=== PATIENT | female | born 1955 | race Caucasian/White ===

== ENCOUNTER → 2016-09-09 | Outpatient (CLI) | payer BC ==
[~2016-09-09] MED LIST: ADVIL200 MG PO; ALEVE220 MG PO; ASPIRIN EC325 MG PO; BRILINTA90 MG PO; CALCIUM 500 +1 EAC4 PO; CLARITIN10 MG PO; FOSAMAX70 MG PO; GLUCOPHAGE500 MG PO; GLUCOSAMINE &1 EAC1 PO; GLUCOSAMINE/CHO1 CAP PO; IPRAT-ALBUT 0.5-3 ML INH; LIPITOR40 MG PO; LOPRESSOR25 MG PO; MULTI VITAMIN1 EACH PO; NITROSTAT0.4 MG SL; PLAVIX75 MG PO; TYLENOL EXTRA500 MG PO; VASOTEC2.5 MG PO; VITAMIN C1000 MG PO
--- NOTE | 2016-09-09 10:45 | NUR ---
Met with patient prior to breast biopsy. Introduced self and role of nurse navigator. Will call patient on Monday to see how she is doing.
--- NOTE | 2016-09-12 13:41 | NUR ---
Called patient post breast biopsy. Biopsy site is fine. No pain or redness. Patient states biopsy procedure went well.
== END | disposition disaster alternative care site (69) ==
LOC: GPOC 09-06 10:00 → GBCOE 09:37 → GPOC 10:00 → GBCOE 10:00
PROC: 0H9T3ZX Drainage of Right Breast, Percutaneous Approach, Diagnostic (ICD-10-PCS; principal; 2016-09-09)
DX: D24.1 Benign neoplasm of right breast (principal); N63 Unspecified lump in breast; Z85.3 Personal history of malignant neoplasm of breast
CPT/HCPCS: J7050

== ENCOUNTER 2016-09-26 19:15 | Inpatient (IN) | payer BC ==
[~2016-09-26] VITALS: Ht 157.5 cm; Wt 74.9 kg
--- NOTE | ~2016-09-26 | ECHO ---
Transthoracic Echocardiography Report (TTE) Demographics Patient Name PEYTON ALARCON Date of Study 09/27/2016 Patient Number [id number] Visit Number [id number] Date of 1955 Room Number G6335 Gender Female Number Age 61 year(s) Referring Lorri Martin MD Disaster Recovery Specialist José Manuel Medellin RVT Physician Kasey West MD Physician Interpreting Maria Luz Huerta Veneer Taper Physician Shamar WARNER Supervising Ordering Olga West MD, MD/MLP Physician Nurse Stress Warehouse Hand Conclusions Contractility Score Summary Global Left Ventricular Hypokinesis was noted. Summary The estimated left ventricular ejection fraction is 30 %. The left ventricle is mildly dilated . Mild concentric left ventricular hypertrophy. Diastolic function probably restrictive Mildly reduced right ventricular function. Mild calcification of the mitral valve. Mild-moderate mitral regurgitation by color Doppler. Mild tricuspid regurgitation by color Doppler. Procedure Type of Study TTE procedure:2D Echocardiogram. Procedure Date Date: 09/27/2016 Start: 08:28 AM Study Location: Inpatient Portable Technical Quality: Adequate visualization Indications:Atrial flutter. Appropriate Use Criteria: 9 Patient Status: Routine HR: 74 bpm BP: 128/74 mmHg M-Mode/2D Measurements LV Diastolic Dimension: 5.48 cm LV Systolic Dimension: 4.58 cm LV Septum Diastolic: 1.16 cm LV PW Diastolic: 1.12 cm AO Root Dimension: 2.6 cm Cardiac Output: 2.64 l/min AV Cusp Separation: 1.7 cm RV Diastolic Dimension: 2.88 cm LA volume: 58 ml LVOT: 1.9 cm RV Base: 2.77 cm LVOT VTI: 12.6 cm RV Mid: 2.51 cm LV Stroke volume: 35.71 ml TAPSE: 0.82 cm TDI-S': 13 cm/s Doppler Measurements AV Peak Velocity: 1.1 m/s MV Peak E-Wave: 1.2 m/s AV Peak Gradient: 4.84 mmHg AV Mean Gradient: 3 mmHg MV P1/2t: 39 msec LVOT Peak Velocity: 0.68 m/s TR Velocity:2.14 m/s PV Peak Velocity: 0.88 m/s TR Gradient:18.32 mmHg PV Peak Gradient: 3.08 mmHg Estimated RAP:10 mmHg Estimated PASP: 28.32 mmHg Estimated RVSP: 28 mmHg A' Septal Velocity: 0.02 m/s E' Septal Velocity: 0.06 m/s A' Lateral Velocity: 0.1 m/s E' Lateral Velocity: 0.14 m/s Findings Left Ventricle The left ventricle is mildly dilated . Mild concentric left ventricular hypertrophy. Diastolic function probably restrictive Right Ventricle Mildly reduced right ventricular function. Left Atrium The left atrium is mildly dilated by LA volume index measurement. Right Atrium The right atrium is mildly to moderately dilated. IVC measures 1.48 cm with inspiratory collapse. Mitral Valve Mild calcification of the mitral valve. Mild-moderate mitral regurgitation by color Doppler. Aortic Valve Possibly bicuspid aortic valve. No significant aortic stenosis or insufficiency. Tricuspid Valve Mild tricuspid regurgitation by color Doppler. Pulmonic Valve Normal pulmonic valve structure and function. Pericardial Effusion No evidence of pericardial effusion. Miscellaneous Visualized portions of the aortic root and ascending aorta appear normal in size. Pleural Effusion No evidence of pleural effusion. Contractility Score LV regional wall motion:(0-Non visualized 1-Normal 2-Hypokinesis 3-Akinesis 4-Dyskinesis 5-Aneurysm) Signature dtt: Art Braga dtd: 09/27/16 0828 Physician Self Edit
--- NOTE | ~2016-09-26 | HP ---
PATIENT'S NAME: PEYTON ALARCON [facility] AGE: 61 Y [address] ROOM: G6335 [place], [place] [address] [facility] ADMIT DATE: 09/26/2016 History & Physical DISCHARGE DATE: FAMILY PHYSICIAN: Kamilla Blackmon MD ATTENDING PHYSICIAN: CAROLYNN AMADOR DATE OF SERVICE: CHIEF COMPLAINT: Exertional dyspnea and bilateral leg weakness. HISTORY OF PRESENT ILLNESS: This is a 61-year-old female who says that for the last 2 weeks she has been experiencing generalized weakness, more in bilateral lower extremities, especially on exertion, but she denies any fall. Due to the generalized weakness, she also complains of exertional dyspnea and tachypnea for the last 2 weeks. She described the leg weakness and exertional dyspnea and tachypnea as on and off; initially, it went away the last few days, but then it came back again yesterday and today. She also complained of some left- sided chest discomfort, but she says that she has been having this for a long time on and off. It feels like as she pulled the muscle. She also complained of some posterior left upper back pain; it is also for long time on and off, and also came back last night and today for a very brief duration. She states that the pain in the left anterior and left posterior chest is about 3/10 in intensity, only lasts a few seconds and only radiates from the left anterior chest to left posterior upper chest, and it feels like she pulled a muscle type of pain. This happened at rest and not on exertion. She does not have any known cardiac history; however, one of her sisters had open heart surgery, bypass, CABG in her 50s. Because of the generalized weakness associated with exertional dyspnea and tachypnea, the patient went to [facility] for evaluation. Over there at [facility], EKG was performed and showed atrial flutter, heart rate in the 140, and blood work over there including troponin, CPK, CK-MB, and chest x-ray were unremarkable. The patient was sent over here for evaluation. Before the patient got transferred here, the patient got 1 L of normal saline and other than that no other medications were given. Currently, the patient does not complain of any chest pain. REVIEW OF SYSTEMS: As mentioned in the history of present illness. All other system review negative except those mentioned in the history of present illness. PAST MEDICAL HISTORY: According to the patient: PATIENT'S NAME: PEYTON ALARCON [facility] AGE: 61 Y [address] ROOM: G6[address] [place], [place] [address] [facility] ADMIT DATE: 09/26/2016 History & Physical DISCHARGE DATE: FAMILY PHYSICIAN: Kamilla Blackmon MD ATTENDING PHYSICIAN: CAROLYNN AMADOR 1. History of left breast cancer in 2000, followed by oncologist, Dr. Álvarez, underwent radiation and finished chemotherapy many years ago. She is already cured without any evidence of metastasis. She denies any other past medical history. ALLERGIES: NO KNOWN DRUG ALLERGIES ACCORDING TO THE PATIENT. HOME MEDICATIONS: Currently is being reconciled. I quickly reviewed the medication list, she is not on any cardiac medication. SOCIAL HISTORY: The patient denies any alcohol or illegal drugs or cigarette use. FAMILY HISTORY: Father has diabetes type 2. Mother from some kind of a kidney problem which would require peritoneal dialysis. She has 2 brothers who are healthy. She has 2 sisters; 1 had an open heart surgery, bypass, CABG in her 50s. She denies any cardiac problems in her parents. PHYSICAL EXAMINATION: VITAL SIGNS: At the time of my dictation, temperature 98, blood pressure 150/85, heart rate 145, respiration 16, and saturation 97% on room air. Pain 0/10. GENERAL APPEARANCE: Alert and oriented x3. In no acute distress. HEENT: Pupils equally round and reactive to light. Extraocular muscles intact. Anicteric sclerae. Nasal turbinates are normal bilaterally. Moist oral mucosa. No oral thrush. NECK: No JVD. CARDIOVASCULAR: Tachycardic. No murmur, no rubs, no gallops. Regular. RESPIRATORY: Clear to auscultation. No rhonchi, no rales, no wheezing, and no crackles. CHEST WALL: Nontender to palpation. ABDOMEN: Soft, nontender, nondistended, normal bowel sounds, no hepatosplenomegaly. Bowel sounds present. No palpable mass. EXTREMITIES: No edema in the upper or lower extremities. NEUROLOGIC: Grossly nonfocal. SKIN: No ulcer, no rash, no cyanosis. MUSCULOSKELETAL: No joint pain, no muscle pain. Range of motion intact. LABORATORY DATA: Troponin 0.112, proBNP 2539, CPK 80, CK-MB 2.9 the first set. White blood cells 5.9, hemoglobin 12.7, hematocrit 37.6, MCV 91, platelets 209. Glucose PATIENT'S NAME: PEYTON ALARCON [facility] AGE: 61 Y [address] ROOM: [place] [address] LOCATION: [facility] ADMIT DATE: 09/26/2016 History & Physical DISCHARGE DATE: FAMILY PHYSICIAN: Kamilla Blackmon MD ATTENDING PHYSICIAN: CAROLYNN AMADOR 110, BUN 15, creatinine 0.6, sodium 144, potassium 4.0, chloride 113, CO2 of 22, calcium 7.9, total protein 6.9, albumin 3.6, AST 64, ALT 155, alkaline phosphatase 76, total bilirubin 0.4, magnesium 2.0, GFR more than 60. Anion gap 13. Globulin 3.3. INR 1.0, PTT 26. Free T4 0.9, TSH 2.690. IMAGING STUDIES: Chest x-ray from the outside facility on September 26, 2016, based on my review, unremarkable. EKG from the outside facility from [facility] on September 26, 2016, before the transfer here shows what seems to be like an atrial flutter, heart rate 140, QRS 92 msec, QTc 485 msec. No acute ischemic changes. Repeat EKG here in our facility on September 26, 2016, at 9:00 p.m. shows heart rate of 144, seems more regular right now, likely in sinus tachycardia. No ST elevation. ASSESSMENT AND PLAN: 1. Regarding her atrial flutter: I have spoken and already formulated the plan of care with on-call patcher, Dr. Stacy, and will start the patient on Cardizem bolus, 0.25 mg/kg bolus, followed by drip starting at 5 mg/hour and titrate to keep the heart rate less than 100. Watch closely for the blood pressure. In the meantime, the patient will be n.p.o. after midnight, and get an echo in the morning, transthoracic, and repeat EKG in the morning, cycle cardiac enzymes every 6 hours. The patient is hemodynamically stable right now and asymptomatic; therefore, there is no urgency for any cardioversion. In the meantime, while n.p.o. and on Cardizem drip, the patient will be getting IV fluids; I will choose a D5 half normal saline and 20 mEq potassium chloride running at 75 mL/h to keep the potassium more than 4 and titrate once the IV fluids is finished after 1 L. Magnesium is already 2, therefore is good. The goal will be to keep the patient's potassium more than 4 and magnesium more than 2, both of which the patient is already at goal. Further plan depends on clinical course. 2. Regarding her troponin elevation: The patient denies any chest pain. EKG does not show any acute ischemia. This could be from demand ischemia given that the patient has been having heart rate in the 140-150 from atrial flutter for a long time, probably since her symptoms have been happening for 2 weeks. Therefore, this could be chronic. Therefore, I am going to start the patient on heparin drip for anticoagulation to prevent the risk of a stroke. Her [id number] score is 1, which is her sex which is a female which gets 1 point. Per guideline, the score of 1 can either go without or with anticoagulation given that the patient has been having this problem for roughly 2 weeks and maybe even longer; therefore, I will go ahead and start the patient on heparin drip for PATIENT'S NAME: PEYTON ALARCON [facility] AGE: 61 Y [address] ROOM: [place] [address] [facility] ADMIT DATE: 09/26/2016 History & Physical DISCHARGE DATE: FAMILY PHYSICIAN: Kamilla Blackmon MD ATTENDING PHYSICIAN: CAROLYNN AMADOR anticoagulation. Further evaluation per Cardiology in the morning in the consult. I also already went over the plan of care with the patient and the patient agreed to be put on a blood thinner. The patient does not have any history of gastrointestinal bleeding or any bleeding history. 3. Regarding her transaminitis: Trend another liver function tests in the morning. The patient denies any abdominal pain. 4. Regarding her deep vein thrombosis prophylaxis: She is already on heparin drip. 5. Code status: She is a full code. Time spent in care on the day of admission 45 minutes including chart review, interviewing the patient, examining the patient, addressing all the questions and concerns the patient had, and going over the plan of care with the patient. I addressed all the questions the patient had to her satisfaction. I also placed a phone call and I sent EKG to the on-call patcher, Dr. Stacy, and I discussed the plan of care with Dr. Stacy over the phone. The only thing I did not discuss at that time was heparin drip because the blood work at that time had not come back. Further plan of care depends on clinical course. I will also be checking a lipid panel and A1c as well in the morning. MD ZULY JARQUIN/melba /[id number] D: [id number] T: [id number] HISTORY & PHYSICAL
--- NOTE | ~2016-09-26 | DS ---
[facility] 61 [facility] [address] ROOM: [facility] [place] [address] LOCATION: [facility]U ADMIT DATE: 09/26/2016 Discharge Summary DISCHARGE DATE: 09/29/2016 FAMILY PHYSICIAN: Kamilla Blackmon MD ATTENDING PHYSICIAN: Sparkle Vargas ATTENDING PHYSICIAN: Jaziel Gutierrez MD CONSULTATION: Cardiology, Dr. Isael Stacy. FINAL DIAGNOSES: 1. Atrial flutter/supraventricular tachycardia, resolved. 2. Coronary artery disease, status post stent. 3. Ischemic cardiomyopathy versus tachycardia-induced cardiomyopathy. 4. History of breast cancer. 5. Transaminitis, unclear etiology. 6. Dyslipidemia. 7. Diabetes mellitus/prediabetes. 8. Right lung nodule, for surveillance. 9. Extrarenal pelvis, likely normal variant. 10. Aortic arch lymphadenopathy. PROCEDURES: Left heart catheterization with stent by Dr. Isael Stacy. REASON FOR ADMISSION: This is a 61-year-old female, who presented with progressively worsening shortness of breath with exertion, also bilateral leg weakness. The patient also had chest pain on her left side. She presented at an outlying hospital, was evaluated, and was found to have atrial flutter. She was then transferred to [facility] for higher level of care. DIAGNOSTIC STUDIES: A transthoracic echocardiogram was done and showed global left ventricular hypokinesis with ejection fraction of 30%, left ventricle mildly dilated with mild concentric left ventricular hypertrophy, diastolic function was probably restrictive with mildly reduced right ventricular function, mild tricuspid regurgitation was noted. Serial cardiac enzymes were done. CPK was normal. Troponin I 0.112 and was trending up and was 0.234 when it was last checked. ProBNP 2539 on admission, subsequently was 1679. Serial CBCs showed essentially normal white count, hemoglobin, hematocrit, and platelet levels. Serial CMPs were done. The patient had normal electrolytes and kidney function tests. Her liver function tests were slightly elevated. AST 64 on admission and 30 at the time of discharge. ALT 155 on admission and trending down and 102 at discharge. Alkaline phosphatase was normal. Total bilirubin level normal. Mag 2.3. Hemoglobin A1c 6.5. Lipid panel was done, showed a total cholesterol 200, PATIENT'S NAME: PEYTON ALARCON [facility] AGE: 61 Y [address] ROOM: [address] [place], [place] [address] LOCATION: [facility]PCU ADMIT DATE: 09/26/2016 Discharge Summary DISCHARGE DATE: 09/29/2016 FAMILY PHYSICIAN: Kamilla Blackmon MD ATTENDING PHYSICIAN: Sparkle Vargas triglycerides 99, HDL 61, LDL 120. The patient was placed on heparin drip, and that was monitored by PTT levels. PT, INR, PTT were normal on admission. TSH 2.[address] 0[address]. [address] chest, abdomen, and pelvis with contrast was done and showed no evidence of aortic aneurysm or dissection. A 7 mm noncalcified nodule at the left lung base was noted. Followup study in 6 month is recommended. Borderline enlarged lymph nodes adjacent to the aortic arch, measuring 9 to 11 mm were noted. Prominent left extrarenal pelvis was noted. HOSPITAL COURSE: This is a 61-year-old female, who had progressively worsening exertional dyspnea and also chest pain and bilateral lower extremity weakness. The patient was evaluated at an outlying facility and was found to have atrial flutter. She was then transferred to [facility]. Upon admission, Dr. Espinoza evaluated the patient. By the time Dr. Espinoza had evaluated the patient, the patient was already in regular rhythm but was tachycardic. She was placed on a Cardizem drip briefly. Her heart rates were then very well controlled. Cardiac enzymes were done and were elevated. There was concern for NSTEMI at that point of time. Cardiology was consulted. A transthoracic echocardiogram was done and showed depressed ejection fraction with hypokinesis. The patient was then scheduled for a left heart catheterization the next morning. It was thought that the patient had tachycardia-induced cardiomyopathy. The next morning, the patient underwent a left heart catheterization and had a stent as well. This was likely ischemic cardiomyopathy. From a tachycardia perspective, the patient's tachycardia had resolved. This was likely thought to be supraventricular tachycardia. Her chest pain had also resolved by the time of discharge. The patient will follow up with Cardiology. She was ambulating in the hallway and tolerating p.o. The patient has a history of breast cancer. She was found to have transaminitis. By the time of discharge, the patient's liver enzymes were trending down. Given her history and also the history of chest pain radiating to her back, there was concern for dissection. This was ruled out by CT chest with contrast. We also did a CT abdomen and pelvis with contrast at the same time to evaluate for liver abnormalities. The patient was found to have a right lung nodule and also aortic arch lymphadenopathy. The patient has a history of breast cancer in the past but had a normal mammogram with fibroadenoma noted on her recent mammogram done on September 05, 2016. A 6-month followup with a right diagnostic mammogram was then recommended. Given her history, a CT abdomen and pelvis with contrast was also done. It noted that the patient has a right lung nodule that is noncalcified and surveillance is recommended for that. The patient also has aortic arch lymphadenopathy. Dr. Ch recommended that we check prior CAT scans, but they were not available PATIENT'S NAME: PEYTON ALARCON [facility] AGE: 61 Y [address] ROOM: [place] [address] LOCATION: [facility]U ADMIT DATE: 09/26/2016 Discharge Summary DISCHARGE DATE: 09/29/2016 FAMILY PHYSICIAN: Kamilla Blackmon MD ATTENDING PHYSICIAN: Sparkle Vargas in the system for evaluation. The patient stated that she had breast cancer several years ago. In the absence of comparison images for aortic arch lymphadenopathy, it is recommended that the patient undergo a PET-CT scan in 1 week's time to further evaluate the lymphadenopathy. The patient will get this arranged outpatient with Dr. Blackmon. I updated Dr. Blackmon about the finding. The patient was also found to have extrarenal pelvis that was thought to be a normal variant on CT abdomen and pelvis. The patient also was found to have a hemoglobin A1c of 6.5. She was given diabetes education prior to discharge. She was recommended regular Accu-Cheks. This was thought to be prediabetes since the patient's stated that the patient recently had a workup for diabetes and did not have elevated blood sugar and was told that she did not have diabetes. I placed the patient on metformin currently. The patient will undergo evaluation with her primary care physician for further diabetes work. The patient initially had atrial flutter. There was consideration given to anticoagulation. She was initially placed on a heparin drip for NSTEMI and also atrial flutter. Her CHADS-Vasc score on admission was 1. However, the patient was found to have borderline diabetes during this admission. This puts her in the II category. She was found to have acute systolic heart failure. If the patient's CHADS-Vasc score is elevated or changes, the patient will need long-term anticoagulation with Coumadin. I discussed this with Dr. Kamilla Blackmon. Cardiology will follow up with the patient, and address if the patient needs long-term anticoagulation. Currently, she would be at high bleeding risk given dual-antiplatelet therapy with Brilinta and ASA for her stent. The patient verbalized understanding of the plan. The patient continued to do well. All questions were answered. She was tolerating p.o. and ambulating in the hallway without any problems. She continued to do well and was discharged and asked to follow up with her primary care physician. DISCHARGE INSTRUCTIONS: The patient discharged on a cardiac and 1800- kilocalorie ADA diet. Activities as tolerated. Follow up with Dr. Isael Stacy in [address] Stacy to address long-term anticoagulation needs if they arise in future. The patient is to follow up with Dr. Kamilla Blackmon in 3 to 4 days' time. PCP to check a CBC and a CMP. Regular BP check advised. Accu-Cheks a.c. and h.s. advised. The patient was given diabetes education prior to discharge. PCP to arrange for a PET scan in 1 week to look for lymphadenopathy. PCP to follow right lung nodule with repeat CT chest in 6 months' time. PCP also to arrange for Oncology follow up with Dr. Jewels Álvarez if the patient's PET scan is abnormal, or if there are any further concerns. PATIENT'S NAME: PEYTON ALARCON [facility] AGE: 61 Y [address] ROOM: [place] [address] LOCATION: [facility]PCU ADMIT DATE: 09/26/2016 Discharge Summary DISCHARGE DATE: 09/29/2016 FAMILY PHYSICIAN: Kamilla Blackmon MD ATTENDING PHYSICIAN: Sparkle Vargas DISCHARGE MEDICATIONS: 1. Aspirin 81 mg p.o. daily, new medication. 2. Calcium and vitamin D 500 mg p.o. daily. 3. Claritin 10 mg p.o. daily p.r.n. allergies. 4. Lipitor 80 mg p.o. q.h.s., new medication. 5. Vasotec 2.5 mg p.o. daily, new medication. 6. Lopressor 25 mg p.o. b.i.d., new medication. 7. Brilinta 90 mg p.o. b.i.d., new medication. 8. Tylenol 1000 mg p.o. q.6 hours p.r.n. pain. 9. Fosamax 70 mg p.o. every 7 days. 10. Multivitamin 1 tablet p.o. daily. 11. Vitamin C 1000 mg p.o. daily. 12. Glucosamine and chondroitin capsule one cap p.o. daily. 13. Ipratropium and albuterol inhalation 1 vial inhalation 4 times daily p.r.n. bronchitis. 14. Metformin 500 mg p.o. b.i.d., new medication. 15. Nitroglycerin 0.4 mg sublingual p.r.n. chest pain. Call MD if chest pain does not resolve. This patient was managed by hospitalist and Cardiology teams during this admission. JAZIEL GUTIERREZ MD MT/modl /[id number] CC: MD Isael Ang MD d: 09/30/16 0241 t: 10/02/16 1552, DISCHARGE SUMMARY
--- NOTE | ~2016-09-26 | CON ---
PATIENT'S NAME: PEYTON ALARCON [facility] AGE: 61 Y [address] ROOM: [address] [place], [place] [address] [facility] ADMIT DATE: 09/26/2016 Consultation DISCHARGE DATE: FAMILY PHYSICIAN: Kamilla Blackmon MD ATTENDING PHYSICIAN: CAROLYNN VARGAS REFERRING PHYSICIAN: Isael Licea MD REFERRING PHYSICIAN: Carolynn Vargas MD. REASON FOR CONSULT: Atrial flutter and shortness of breath. 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 She notices that she has "not been feeling quite right" for the past 2 weeks, but last week at work her legs became very weak and she was very short of breath. It did not last long and she thought maybe she had a virus. Monday, she was not at work and she had repeat episode and thought "well maybe something just does not quite right" and so she went to see her primary care physician on Monday. They did an EKG and she was found to be in atrial fibrillation/atrial flutter and so she was transferred to [facility] for further definitive care. She does not really notice any palpitation and she denies any chest pain, but states that she feels like she has a pulled muscle in her back and sometimes under her left breast. She has been more short of breath. She has been more fatigued and has found it difficult to lie down. She has also had some mild peripheral edema, but nothing really concerning. She also had cardiac enzymes that were done showing a troponin of 0.112 to 0.282, CK-MB was 2.9 with a normal creatinine of 0.6. PAST MEDICAL HISTORY: 1. Left breast cancer in 2000, followed by Dr. Álvarez. She has undergone radiation and chemotherapy. She has not had any further recurrence. 2. Hyperlipidemia. PAST SURGICAL HISTORY: 1. Right breast biopsy. 2. Left breast lumpectomy. 3. Tonsillectomy. FAMILY HISTORY: Father has diabetes mellitus type 2. Mother from kidney problems, which required peritoneal dialysis. She has 2 brothers who are healthy and 2 sisters, one sister had open-heart surgery in her 50s. REVIEW OF SYSTEMS: PATIENT'S NAME: PEYTON ALARCON [facility] AGE: 61 Y [address] ROOM: [id number] [place], [place] [address] LOCATION: [facility] ADMIT DATE: 09/26/2016 Consultation DISCHARGE DATE: FAMILY PHYSICIAN: Kamilla Blackmon MD ATTENDING PHYSICIAN: CAROLYNN VARGAS GENERAL: She has been more fatigued lately. HEAD: No history of headaches. EYES: No blurred vision or double vision. EARS: No problems with hearing. NOSE: No epistaxis or rhinorrhea. MOUTH: No gingival bleeding. THROAT: Denies sore throat, hoarseness, or difficulty swallowing. PULMONARY: Denies cough or hemoptysis, but she does complain of some orthopnea. GI: She has had a decreased appetite. : Negative for urinary frequency or urgency. MUSCULOSKELETAL: No complaints of arthralgias or myalgias. NEUROLOGIC: Denies TIA or CVA symptomatology. No complaints of feeling off balance, but she does complain of increased weakness. PHYSICAL EXAMINATION: VITAL SIGNS: Currently, heart rate during talking is around 140, at rest it is 74; blood pressure is 130s/70s. She is afebrile. Her weight is 167 pounds. She is alert and oriented. Answers questions appropriately. SKIN: Warm, dry, and pink. She appears a little short of breath. HEENT: Oral mucosa is pink and moist. NECK: Soft and supple. No lymphadenopathy. No thyromegaly. JVD is flat. LUNGS: Lung sounds were clear anteriorly and posteriorly. CV: Irregular and tachycardic. ABDOMEN: Soft. Bowel sounds are present. EXTREMITIES: No peripheral edema, no clubbing, and no cyanosis. LABORATORY DATA: TSH is 2.69. Potassium was 4. Hemoglobin 12.7. ASSESSMENT: 1. Atrial fibrillation/atrial flutter. We are going to check an echocardiogram looking at ejection fraction. We will continue rate control and heparin for now. We will plan on starting her on metoprolol 25 mg p[address] b.i.d. We will place her n.p.o. after midnight for any further testing in the morning. 2. Hyperlipidemia. She is on Lipitor. We will continue with the same medications. 3. History of breast cancer. She did have chemo and radiation. There has been no further recurrence. We do not have a previous echocardiogram, we will see what her EF was. The assessment and plan, history of present illness, and physical exam are for Dr. Isael Licea. PATIENT'S NAME: PEYTON ALARCON [facility] AGE: 61 Y [address] ROOM: [place] [address] [facility] ADMIT DATE: 09/26/2016 Consultation DISCHARGE DATE: FAMILY PHYSICIAN: Kamilla Blackmon MD ATTENDING PHYSICIAN: CAROLYNN VARGAS RICARDO ABRAMS APRN FOR ISAEL LICEA MD TGP/modl /[id number] d: 09/29/16 0001 t: 10/07/16 0922, CONSULTATION REPORT
--- NOTE | ~2016-09-26 | CATH ---
Cardiac Diagnostic + PCI Report Demographics Patient Name DORIAN Peterson Gender Female Date of 1955 Age 61 year(s) Patient Number [id number] Date of Study 09/28/2016 Visit Number [id number] Room Number G[address] [place] [id number] Ht 157.48 cm Wt 75.75 kg Referring Lorri Martin MD Primary Physician Physician Performing Tawanna Kirkland MD Secondary Physician Physician Diagnostic Tawanna Kirkland MD Assisting Physician Physician Interventional Tawanna Kirkland MD Physician Sas Sql Developer Physician Findings and Conclusions Diagnostic Findings and Conclusion Two vessel CAD. Inferior wall motion abnormality. Diagnostic Recommendations PCI RCA. Interventional Findings and Conclusion 0.014 Prowater 2.75 x 20 Emerge 3 x 28 Promus to 3.2 mm Successful JOHN PAUL to RCA. Interventional Recommendations DAPT x 1 year. Non-invasive risk assessment of LCx lesion. Routine post-Perclose care. Procedure Description The patient was brought to the diagnostic cardiac catheterization-EP laboratory in the fasting, non-sedated state. Informed consent was obtained in the written and verbal form after the risks and benefits were explained. The patient had no further questions and agreed to proceed. The planned puncture-incision site(s) were shaved and prepped with ChloraPrep and draped in the usual sterile manner. Conscious sedation, supplemental oxygen, and pain control medications were delivered by a registered nurse under physician guidance. Surface ECG rhythm, blood pressure measurement, and pulse oximetry were monitored throughout the procedure. Arterial access. The access site was infiltrated with lidocaine. The vessel was entered with the Seldinger technique. A sheath was advanced into the vessel and used for catheter placement. Venous access. The access site was infiltrated with lidocaine. The vessel was entered with the Seldinger technique. A sheath was advanced into the vessel and used for catheter placement. Selective left coronary angiography. A catheter was advanced into the left coronary vessel ostium under Fluoroscopic guidance. Contrast was injected by hand. Images were obtained in multiple projections. Selective right coronary angiography. A catheter was advanced into the right coronary vessel ostium under fluoroscopic guidance. Contrast was injected by hand. Images were obtained in multiple projections. Left heart catheterization with ventriculography. A catheter was advanced across the aortic valve to the left ventricle under fluoroscopic guidance. Resting hemodynamics were obtained. With the catheter at the left ventricular apex, contrast was injected. Images were obtained in BAHENA projections. Post-ventriculography LV pressure was obtained. The catheter was gradually withdrawn into the aorta with continuous pressure recording. Right heart catheterization. A Dunnigan Dolly catheter was successfully advanced to the right atrium, right ventricle, pulmonary artery, and pulmonary artery wedge position under fluoroscopic guidance. Resting hemodynamics were obtained. Measurements included pressures, arterial and venous oxygen saturation samples, and cardiac output. The Dunnigan was removed without difficulty. Angioplasty and Stent Placement: A guiding catheter was used to intubate the vessel. A 0.14 wire was then used to cross the lesion. A balloon catheter was placed across the lesion and inflated. The balloon catheter was then removed. A Drug Eluting Stent was placed and inflated. Post placement angiograms were performed. Arterial artery hemostasis was achieved. The patient was transferred to a regular nursing floor via cart accompanied by a nurse. The patient left the laboratory in stable condition. Diagnostic Cath Status: Urgent Interventional Cath Status: Urgent Procedure Procedure Type Diagnostic procedure:Ventriculogram:, Left, Angiography:, Right and Left Heart Cath, Coronary Angios PCI procedure:Drug Eluting Coronary Stent:, RCA Indications: Shortness of breath and Cardiomyopathy. The procedure was explained in detail to the patient. Risks, complications and alternative treatments were reviewed. Written consent was obtained. Medications Reviewed with Patient prior to Procedure. Angiographic Findings Dominance: Right Cardiac Arteries and Lesion Findings LMCA: Medium, normal. LAD: Medium, normal. Diag 1 small. Diag 2 medium, normal. LCx: Large, prox - mid, normal. OM 1 large, proximal stenosis 70%. Lesion on 1st Ob Elaine: Proximal subsection.70% stenosis . RCA: Large, dominant. Mid stenosis 85%. PL small, OK. PDA medium, OK. Lesion on Mid RCA: Mid subsection.85% stenosis 28 mm length reduced to 0%. Pre procedure ZAID III flow was noted. Post Procedure ZAID III flow was present. The guidewire cross was successful.The lesion was diagnosed as a low risk lesion.Culprit lesion. Devices used - Prowater Wire .014 x 180. Number of passes: 1. - Emerge Balloon 2.75 x 20. 2 inflation(s) to a max pressure of: 10 caden. - Promus Premier 3.0 x 28 Stent. 2 inflation(s) to a max pressure of: 16 caden. Coronary Tree Procedure Data Procedure Date Date: 09/28/2016Start: 02:27 PMEnd: 03:35 PM Entry Locations - Antegrade Percutaneous access was performed through the Right Femoral vein. A 7 Fr sheath was inserted. Hemostasis was successfully obtained using Manual Compression. Closure Comments: Pressure held by Paolo Cheung. - Retrograde Percutaneous access was performed through the Right Femoral artery (Primary location). A 6 Fr sheath was inserted. Hemostasis was successfully obtained using Perclose ProGlide (Rae). Closure Comments: Deployed by Paolo Cheung. Procedure Medications Order and Administration + + + + + !Time !Medication !Dosage !Route ! + + + + + 09/28/2016 02:15 !Versed !1 mg !I.V. ! !PM ! ! ! ! + + + + + 09/28/2016 02:42 !Heparin (ACC_3) ! !I.V. drip ! !PM ! ! ! ! + + + + + 09/28/2016 02:42 !Nitroglycerin !tabs !S.L. ! !PM ! ! ! ! + + + + 09/28/2016 02:44 !Lasix !20 mg !I.V. ! !PM ! ! ! ! + + + + 09/28/2016 02:44 !Oxygen !2 l/min !NC ! !PM ! ! ! ! + + + + 09/28/2016 02:53 !Heparin (ACC_3) !3000 units !I.V. bolus ! !PM ! ! ! ! + + + + + 09/28/2016 02:55 !Integrilin (ACC_7) !13.6 mg !I.V. bolus ! !PM ! ! ! ! + + + + + !09/28/2016 02:56 !Integrilin (ACC_7) !2 mcg/kg/min!I.V. drip ! !PM ! ! ! ! + + + + + !09/28/2016 03:04 !Integrilin (ACC_7) !13.6 mg !I.V. bolus ! !PM ! ! ! ! + + + + + !09/28/2016 03:07 !Brilinta (Ticagrelor) !180 mg !P.O. ! !PM !(ACC_20) ! ! ! + + + + + Devices Used - A6 Fr. BS Angled Pigtail Diag. Catheterwas used for:Left ventriculography. - A6 Fr. BS JL 4 Diag. Catheterwas used for:Left coronary angiography. - A6 Fr. BS JR 4 Diag. Catheterwas used for:Right coronary angiography. - A6 Fr. JR4 Guide Catheterwas used for:RCA Intervention. Contrast Material - Isovue [id number] ml Fluoroscopy Time: Diagnostic: 11:48 minutes. Total: 11:48 minutes. Fluoroscopy Dose: Diagnostic: 1497 mGy. Total: 1497 mGy. Estimated Blood Loss: 5 ml. Medical History Risk Factors The patient risk factors include:family history of premature CAD, last creatinine: 0.6 mg/dl and creatinine clearance: 119.24 ml/min. Admission Data Admission Date: 09/26/2016 Admission Time: 07:56 PM Insurance Payors: Private health insurance. Clinical Evaluation Leading to Procedure - The patient's CAD presentation was assessed as: Unstable angina. - The patient's anginal syndrome during the past two weeks was assessed as: Class III according to the [place] Cardiovascular Society Classification System (CCS). Anti-anginal medications were prescribed during the past two weeks. The medications are: Beta Blockers and Ca channel Blockers. - The patient has been in a state of heart failure within the past two weeks. - The patient's heart failure status was assessed as NYHA Class III, with CHF symptoms of GRIFFIN. - The reason for the patient's labeling strategist visit is evaluation of cardiomyopathy and/or evaluation of left ventricular systolic dysfunction. VA Ventriculography Findings Moderate to severe inferior wall hypokinesis. EF 40%. LV function assessed as:Abnormal. Ejection Fraction - 09/28/2016 - Method: LV gram. EF%: 40. LVA Segment Contractility 1 - Normal 3 - Mild 5 - Severe 7 - Dyskinesis hypokinesis hypokinesis 2 - 4 - Moderate 6 - Akinesis 8 - Aneurysm Hypokinesis hypokinesis Hemodynamics Condition: Rest O2 Consumption: Estimated: 171.15Heart Rate: 75 bpm Oxygen Saturation +--------+-----+----+ +---+ + !Location!pCO2 !pO2 !% Saturation !Hgb!O2 Content ! +--------+-----+----+ +---+ + !SVC ! ! !53.7 ! ! ! +--------+-----+----+ +---+ + !IVC ! ! !63.2 ! ! ! +--------+-----+----+ +---+ + !RA ! ! !50.2 ! ! ! +--------+-----+----+ +---+ + !FA ! ! !90.3 ! ! ! +--------+-----+----+ +---+ + !PCW ! ! !58 ! ! ! +--------+-----+----+ +---+ + Pressures (mmHg) +-----+ + !Site !Pressure ! +-----+ + !RA !17/15 (14) ! +-----+ + !RV !61/9 ,12 ! +-----+ + !PCW !/ (29) ! +-----+ + !PCW !39/59 (44) ! +-----+ + !LV !136/14 ,18 ! +-----+ + !PCW !35/57 (45) ! +-----+ + !LV !135/13 ,17 ! +-----+ + !PCW !22/42 (28) ! +-----+ + !LV !136/3 ,19 ! +-----+ + !PA !63/26 (43) ! +-----+ + !LV !130/16 ,18 ! +-----+ + !AO !137/81 (105) ! +-----+ + !LV !131/14 ,19 ! +-----+ + !AO !137/82 (105) ! +-----+ + Cardiac Output + + +------+ !Time !Cardiac Output (l/min) !Use ! + + +------+ !09/28/2016 03:10 PM !2.86 !False ! + + +------+ !09/28/2016 03:11 PM !2.72 !True ! + + +------+ !09/28/2016 03:12 PM !2.52 !True ! + + +------+ !09/28/2016 03:12 PM !2.53 !True ! + + +------+ !09/28/2016 03:13 PM !2.26 !False ! + + +------+ Cardiac Output +-------+ + + + !Method !CO (l/min) !CI (l/min/m2) !SV (ml) ! +-------+ + + + !Paradise !2.51 !1.4 !33.45 ! +-------+ + + + !Thermal!2.59 !1.5 !35.81 ! +-------+ + + + Valve Gradients and Areas + +--------+--------+--------+---------+ + + !Valve !Peak !Mean !Area !Index !Flow !Source ! + +--------+--------+--------+---------+ + + !Aortic !0 !0 ! ! !318.93 !Paradise ! + +--------+--------+--------+---------+ + + !Aortic !0 !0 ! ! !329.1 !Thermal ! + +--------+--------+--------+---------+ + + Shunts Oxygen Values O2 Capacity 170 O2 Consumption 171.15 Flows (l/min) Qs 2.94 Qe 52.34 Vascular Resistance (dynes x sec x cm-5) + +-----+-----+-----+----+---------+-------+ !CO method !TSVR !SVR !TPVR !PVR !TPVR/TSVR!PVR/SVR! + +-----+-----+-----+----+---------+-------+ !Paradise !41.83!36.39!17.22!5.95!0.41 !0.16 ! + +-----+-----+-----+----+---------+-------+ !Thermal !40.54!35.27!16.69!5.77!0.41 !0.16 ! + +-----+-----+-----+----+---------+-------+ !Qp or Qs !35.71!31.07! ! ! ! ! + +-----+-----+-----+----+---------+-------+ Discharge Data Discharge Date: 09/29/2016 Hospital Status: Inpatient Signatures dtt: Isael Stacy (cardio) dtd: 09/28/16 1427 Physician Self Edit
[~2016-09-26 19:15] MED LIST changes: -ADVIL200 MG PO; -ALEVE220 MG PO; -ASPIRIN EC325 MG PO; -BRILINTA90 MG PO; -CLARITIN10 MG PO; -GLUCOPHAGE500 MG PO; -GLUCOSAMINE/CHO1 CAP PO; -IPRAT-ALBUT 0.5-3 ML INH; -LIPITOR40 MG PO; -LOPRESSOR25 MG PO; -NITROSTAT0.4 MG SL; -PLAVIX75 MG PO; -TYLENOL EXTRA500 MG PO; -VASOTEC2.5 MG PO
[2016-09-26] MEDS ORDERED: ALEVE220 MG PO (20:02)
[2016-09-26] MEDS ORDERED: TYLENOL EXTRA500 MG PO (20:03)
[2016-09-26] MEDS ORDERED: ADVIL200 MG PO (20:03)
[2016-09-26] MEDS ORDERED: IPRAT-ALBUT 0.5-3 ML INH (20:05)
[2016-09-26] MEDS ORDERED: CLARITIN10 MG PO (20:19)
[2016-09-26 21:24] LABS: BASOPHIL # 0.1 K/uL (0.0-0.2); EOSINOPHIL # 0.1 K/uL (0.0-0.5); EOSINOPHIL % 1.2 %; HEMATOCRIT 37.6 % (33.0-46.0); HEMOGLOBIN 12.7 g/dL (10.0-15.0); IMMATURE GRANULOCYTE % 0.2 %; LYMPHOCYTE # 1.7 K/uL (0.8-4.0); LYMPHOCYTE % 29.5 %; MCH 30.8 pg (27.0-34.0); MCHC 33.8 gm/dL (32.0-36.5); MONOCYTE # 0.5 K/uL (0.0-1.0); MONOCYTE % 8.5 %; MPV 9.9 fl (9.4-12.4); NEUTROPHIL # (ANC) 3.5 K/uL (1.8-7.8); NEUTROPHIL % 59.6 %; NRBC % 0 /100WBC (0-0.00); PLATELET COUNT 209 K/uL (150-450); RBC 4.13 M/uL (3.50-5.50); RDW-CV 13.5 % (11.9-14.6); WBC 5.9 K/uL (4.0-11.0)
[2016-09-26 21:32] LABS: PROTIME 10.5 SECONDS (9.8-11.4); PTT 26 SECONDS (25-32)
[2016-09-26 21:44] LABS: ALBUMIN 3.6 gm/dL (3.5-5.0); ALK PHOS 76 IU/L (33-138); ALT 155 IU/L (12-78); AST 64 IU/L (10-40); BLOOD UREA NITROGEN 15 mg/dL (6-24); CALCIUM 7.9 mg/dL (8.5-10.5); CHLORIDE 113 mMol/L (96-110); CO2 22 mMol/L (22-32); CPK 80 IU/L (21-215); CREATININE 0.6 mg/dL (0.5-1.1); ESTIMATED GFR (MDRD EQUATION) > 60; SODIUM 144 mMol/L (135-145); TOTAL BILIRUBIN 0.4 mg/dL (0.0-1.5); TOTAL PROTEIN 6.9 g/dL (6.0-8.4)
--- NOTE | 2016-09-27 02:05 | NUR ---
1939: PATIENT ARRIVES TO FLOOR VIA EMS. VS: HR:143, BP:150/95-113, 96% ON RA R:20, 98.1 ORAL, DENIES PAIN AT THIS TIME. AWAITING ORDERS PER DR AIKEN AT THIS TIME.
--- NOTE | 2016-09-27 05:24 | NUR ---
Significant Event: PATIENT A/O X 3, COOPERATIVE WITH CARES. HR: AFLUTTER 70-150'S, WITH ACTIVITY. BP:110-130'S, R:16-20, RA, SATS >90%, AFEBRILE. DENIES PAIN. IV X 2 R)FA, INFUSING HEP AT 1000 UNITS, NEXT PTTHP AT 1100, CARDIZEM GTT CONT AT 5MG/HR. TITRATE PER PROTOCOL. UP WITH 1 ASSIST TO BATHROOM, TOLERATES GOOD. PATIENT RESTS OFF AND ON OVERNIGHT. Follow up: CONTINUE TO MONITOR PER PLAN OF CARE. CARDIO CONSULT THIS AM
[2016-09-27 08:22] LABS: ANION GAP 12.1 (10.0-19.0); BLOOD UREA NITROGEN 11 mg/dL (6-24); CALCIUM 8.2 mg/dL (8.5-10.5); CHLORIDE 112 mMol/L (96-110); CO2 24 mMol/L (22-32); CPK 76 IU/L (21-215); CREATININE 0.6 mg/dL (0.5-1.1); ESTIMATED GFR (MDRD EQUATION) > 60; MAGNESIUM 2.3 mg/dL (1.8-2.6); POTASSIUM 4.1 mMol/L (3.7-5.1); SODIUM 144 mMol/L (135-145)
[2016-09-27 08:32] LABS: ALBUMIN 3.5 gm/dL (3.5-5.0); ALK PHOS 77 IU/L (33-138); ALT 136 IU/L (12-78); AST 43 IU/L (10-40); TOTAL BILIRUBIN 0.4 mg/dL (0.0-1.5)
--- NOTE | 2016-09-27 12:13 | NUR ---
Introduced self and role of care management to pt. She lives [place] and works many hours at the [employer]. She is independent with cares and denies any post discharge needs.
--- NOTE | 2016-09-27 16:36 | NUR ---
Significant Event: VSS AND RA. AFLUTTER CONTINUED THIS AM WITH HR'S 70S AT REST TO 140S WITH ACTIVITY; PO LOPRESSOR GIVEN WITH CARDIZEM GTT AND PATIENT CONVERTED TO SINUS BRADYCARDIA IN THE LOW 50S AT 1140-GTT D/C'D AT THIS TIME. HR'S HAVE REMAINED 50S-70S T/O REST OF THE SHIFT. SBPS 100S-120S. TYLENOL X1 FOR MID/UPPER BACK PAIN, WITH RELIEF-PAIN GONE THIS AFTERNOON WHILE IN SR. DENIES CP. ECHO DONE AND EF 30%, IV SALINE LOCKED. CT ABDOMEN AND PELVIS ORDERED BY HOSPITALIST THIS AFTERNOON TO R/O DISSECTION, RESULTS PENDING. HEPARIN GTT CONTINUES PER PROTOCOL WITH NEXT PTTHP AT 1745. VOIDS WITH ADEQUATE UOP, 2 BMS. REPOSITIONS SELF FREQUENTLY. Follow up: CONTINUE PLAN OF CARE; NPO P MN.
--- NOTE | 2016-09-28 05:08 | NUR ---
Patient A/Ox3. VSS. Sinus Rhythm. Standby assist. No complaints. Heparin gtt 1200units next PTTHP 0700. NPO for possible stress test today. Lungs clear. Bowel sounds present, BM this shift.
[2016-09-28 07:00] LABS: BASOPHIL # 0.1 K/uL (0.0-0.2); EOSINOPHIL # 0.2 K/uL (0.0-0.5); EOSINOPHIL % 1.9 %; HEMATOCRIT 37.1 % (33.0-46.0); HEMOGLOBIN 12.5 g/dL (10.0-15.0); IMMATURE GRANULOCYTE % 0.3 %; LYMPHOCYTE # 1.6 K/uL (0.8-4.0); LYMPHOCYTE % 20.5 %; MCH 30.8 pg (27.0-34.0); MCHC 33.7 gm/dL (32.0-36.5); MCV 91.4 fl (83.0-98.0); MONOCYTE # 0.6 K/uL (0.0-1.0); MONOCYTE % 7.3 %; MPV 10.2 fl (9.4-12.4); NEUTROPHIL # (ANC) 5.4 K/uL (1.8-7.8); NRBC % 0 /100WBC (0-0.00); PLATELET COUNT 203 K/uL (150-450); RBC 4.06 M/uL (3.50-5.50); RDW-CV 13.7 % (11.9-14.6); WBC 7.8 K/uL (4.0-11.0)
[2016-09-28 07:28] LABS: ALBUMIN 3.4 gm/dL (3.5-5.0); ALK PHOS 75 IU/L (33-138); ALT 133 IU/L (12-78); ANION GAP 14.4 (10.0-19.0); AST 47 IU/L (10-40); CALCIUM 8.3 mg/dL (8.5-10.5); CHLORIDE 112 mMol/L (96-110); CO2 23 mMol/L (22-32); CREATININE 0.6 mg/dL (0.5-1.1); ESTIMATED GFR (MDRD EQUATION) > 60; POTASSIUM 4.4 mMol/L (3.7-5.1); SODIUM 145 mMol/L (135-145); TOTAL BILIRUBIN 0.4 mg/dL (0.0-1.5); TOTAL PROTEIN 6.9 g/dL (6.0-8.4)
[2016-09-28 07:33] LABS: BLOOD UREA NITROGEN 18 mg/dL (6-24)
[2016-09-29 03:46] LABS: BASOPHIL # 0.1 K/uL (0.0-0.2); BASOPHIL % 0.7 %; EOSINOPHIL # 0.1 K/uL (0.0-0.5); HEMATOCRIT 35.7 % (33.0-46.0); HEMOGLOBIN 12.2 g/dL (10.0-15.0); IMMATURE GRANULOCYTE % 0.2 %; LYMPHOCYTE # 1.3 K/uL (0.8-4.0); LYMPHOCYTE % 15.4 %; MCH 31.1 pg (27.0-34.0); MCHC 34.2 gm/dL (32.0-36.5); MCV 91.1 fl (83.0-98.0); MONOCYTE # 0.8 K/uL (0.0-1.0); MONOCYTE % 9.3 %; MPV 10.2 fl (9.4-12.4); NEUTROPHIL # (ANC) 6.4 K/uL (1.8-7.8); NEUTROPHIL % 73.4 %; NRBC % 0 /100WBC (0-0.00); PLATELET COUNT 187 K/uL (150-450); RBC 3.92 M/uL (3.50-5.50); RDW-CV 13.5 % (11.9-14.6); WBC 8.7 K/uL (4.0-11.0)
--- NOTE | 2016-09-29 03:57 | NUR ---
Significant Event: Patient A/Ox3. VSS on RA. Slightly hypotensive. SBP 90s-100s. MAP>65. Up minimal assist to bathroom. R) groin site soft, some bleeding on dressing but has not increased since last evening. No complaints of pain this shift. Integrilin currently running at 12ml/hr. Evening lopressor held for SBP < 100. Follow up: Home today?
[2016-09-29 04:01] LABS: ALBUMIN 3.4 gm/dL (3.5-5.0); ALK PHOS 76 IU/L (33-138); ALT 102 IU/L (12-78); ANION GAP 12.5 (10.0-19.0); AST 30 IU/L (10-40); BLOOD UREA NITROGEN 22 mg/dL (6-24); CALCIUM 8.6 mg/dL (8.5-10.5); CHLORIDE 106 mMol/L (96-110); CO2 26 mMol/L (22-32); CREATININE 0.7 mg/dL (0.5-1.1); ESTIMATED GFR (MDRD EQUATION) > 60; POTASSIUM 3.5 mMol/L (3.7-5.1); SODIUM 141 mMol/L (135-145); TOTAL PROTEIN 6.7 g/dL (6.0-8.4)
[2016-09-29 04:02] LABS: TOTAL BILIRUBIN 0.7 mg/dL (0.0-1.5)
[2016-09-29] MEDS ORDERED: ASPIRIN EC325 MG PO (14:47)
[2016-09-29] MEDS ORDERED: LIPITOR40 MG PO (14:49)
[2016-09-29] MEDS ORDERED: VASOTEC2.5 MG PO (14:50)
[2016-09-29] MEDS ORDERED: LOPRESSOR25 MG PO (14:51)
[2016-09-29] MEDS ORDERED: BRILINTA90 MG PO (14:53)
[2016-09-29] MEDS ORDERED: GLUCOPHAGE500 MG PO (14:57)
--- NOTE | 2016-09-29 14:57 | NUR ---
Diabetes consult: Patient with new diagnosis of Type II diabetes with A1C of 6.5%. The patient was provided with a diabetes booklet and a elaine contour next glucometer. She was instructed on the use of the glucometer and was able to demonstrate how to check a blood sugar. A random blood sugar of 104 was noted. The patient was encouraged to test blood sugars once daily, rotating fasting to two hours following a meal. She was encouraged to take her glucometer to her follow up appointment with Dr. Blackmon for a review of blood sugar readings. The patient reports her has diabetes and she has some knowledge of the potential complications of diabetes. She was provided with education regarding blood sugar targets and the importance of A1C and glucose monitoring. She was instructed on how to read a food label, how carbs contribute to elevated blood sugars and to keep carbs between 45-60 grams per meal. The patient was encouraged to increase her activity and adhere to the above carb limits. She denies further questions.
[2016-09-29] MEDS ORDERED: NITROSTAT0.4 MG SL (14:58)
--- NOTE | 2016-09-29 16:20 | NUR ---
PT DISMISSED TO HOME WITH TO DRIVE. AT TIME OF DC PT IS A/O PINK WARM AND DRY, STEADY ON FEET WHEN UP IN ROOM AND HALLS PER SELF. LUNGS ARE CLEAR ABDOMEN IS SOFT AND NONTENDER WITH PRESENT BOWEL SOUNDS.PULSES ARE STRONG SHE HAS NO EDEMA. RT GROIN SITE IS DRY, OLD DRESSING FROM YESTERDAY IS OFF AND NEW CLEAN AIR STRIP APPLIED. GRON INSTRUTIONS GIVEN. PRESCRIPTIONS, MEDICATIONS, FOLLOW UP CARE AND APPOINTMENTS ALL WENT OVER WITH PT, VERBALIZES UNDERSTANDING. W/C TO FRONT WEST TOWER LOBBY DOOR FOR DC TO HOME.
[2016-12-09] MEDS ORDERED: PLAVIX75 MG PO (13:19)
== END 2016-09-29 15:15 | disposition disaster alternative care site (69) | DRG 247 ==
LOC: GPCU 19:15
PROVIDERS: Family Medicine; Internal Medicine Interventional Cardiology; ADMIT Internal Medicine
DX: I47.1 Supraventricular tachycardia (principal); I82.409 Acute embolism and thrombosis of unspecified deep veins of unspecified lower extremity; I48.92 Unspecified atrial flutter; I48.91 Unspecified atrial fibrillation; Z95.1 Presence of aortocoronary bypass graft; M54.9 Dorsalgia, unspecified; R74.0 Nonspecific elevation of levels of transaminase and lactic acid dehydrogenase [LDH]; R91.1 Solitary pulmonary nodule; Z85.3 Personal history of malignant neoplasm of breast; Z92.21 Personal history of antineoplastic chemotherapy; Z92.3 Personal history of irradiation; I25.10 Atherosclerotic heart disease of native coronary artery without angina pectoris; I25.5 Ischemic cardiomyopathy; E78.5 Hyperlipidemia, unspecified; R73.03 Prediabetes; R59.1 Generalized enlarged lymph nodes
CPT/HCPCS: C1725; C1760; C1769; C1874; C1887; C9600; J1327; J1644; J1940; J2250; J2270; J2405; J3010; J3480; J7040; J7060; Q9967

== ENCOUNTER → 2016-09-26 | Outpatient (CLI) | payer BC | END | disposition disaster alternative care site (69) | LOC: GAMB 18:37 | DX: I49.9 Cardiac arrhythmia, unspecified (principal); I10 Essential (primary) hypertension; E03.9 Hypothyroidism, unspecified; I48.92 Unspecified atrial flutter; R53.1 Weakness; R06.02 Shortness of breath | CPT/HCPCS: A0425; A0426 ==

== ENCOUNTER → 2016-10-21 | Outpatient (CLI) | payer BC ==
[~2016-10-21] MED LIST changes: +ADVIL200 MG PO; +ALEVE220 MG PO; +ASPIRIN EC325 MG PO; +BRILINTA90 MG PO; +CLARITIN10 MG PO; +GLUCOPHAGE500 MG PO; +GLUCOSAMINE/CHO1 CAP PO; +IPRAT-ALBUT 0.5-3 ML INH; +LIPITOR40 MG PO; +LOPRESSOR25 MG PO; +NITROSTAT0.4 MG SL; +PLAVIX75 MG PO; +TYLENOL EXTRA500 MG PO; +VASOTEC2.5 MG PO
== END | disposition disaster alternative care site (69) ==
LOC: GKIC 10:22
DX: C50.919 Malignant neoplasm of unspecified site of unspecified female breast (principal); R59.9 Enlarged lymph nodes, unspecified
CPT/HCPCS: A9552

== ENCOUNTER → 2016-11-18 | Outpatient (CLI) | payer BC ==
--- NOTE | ~2016-11-18 | ESTC ---
Cardiac Perfusion Imaging Demographics Patient Name DORIAN Peterson Gender Female Patient Number [id number] Race Visit Number [id number] Ethnicity Corporate ID Room Number Accession Number [id number] Height 62 inches Date of 1955 Weight 153 pounds Interpreting Tawanna Kirkland MD Date of study 11/18/2016 Physician Supervising /STACI Huitron NM Technologist Conrad Tao APRN Ordering Physician Tawanna Kirkland MD Stress automotive service technician Stress ECG Reading Rip Huitron Nurse Genie Bach Physician CEZAR PUENTEcafeteria worker Admit Source:Other. Procedure Type: Nuclear Stress Test:Exercise, Cardiolite Stress Test Procedure Start time: 11/18/2016 08:30 Indications: History of CAD and post-PTCA. Risk Factors The patient risk factors include:prior PCI on 09/28/2016;orally-treated diabetes mellitus. Conclusions Summary Cardiolite SPECT images demonstrate a moderate sized area of moderate to severe reversible defect involving the distal anterior wall and anteroapical regions. No evidence of underlying fixed defect. Normal TID ratio, LV diastolic dimension in increased on both the rest and stress images without appreciable changes. Findings consistent with cardiomyopathic state. Gated images demonstrate mild global hypokinesis, LVEF is 49% Stress Protocols Resting ECG RSR Resting HR:68 bpm Resting BP:153/73 mmHg Pre-stress physical exam: Patient assessed by Scott Erwin APRN prior to testing. Stress Protocol:Exercise Peak HR:157 bpm HR response: Appropriate Peak BP:177/72 mmHg BP response: Appropriate Predicted HR: 160 bpm HR/BP product:54329 % of predicted HR: 98 Max exercise: 10.1 METS Test duration:09:45 min Reason for termination:Target heart rate Exercise effort:Excellent Perceived exertion:13 ECG Findings Sinus tachycardia. At Max exercise ST depression V4, V5, V6 1mm Hg Arrhythmias None Symptoms Shortness of breath. Stress Interpretation The electrocardiographic portion of the stress test was positive for ischemia. Blood pressure response was normal, heart rate response was normal for exertion. The Milligan Treadmill Score was +5. This corresponds to a low risk stress test. Stress supervision and interpretation provided by Amparo Erwin APRN . Imaging Results Applied corrections - Motion correction applied High risk findings Summed scores - Summed stress score: 10 - Summed rest score: 2 - Summed difference score: 8 Stress ejection Ejection fraction:49 % EDV :144 ml ESV :74 ml Stroke volume :70 ml LV mass :147 gr Imaging Protocols Rest Stress Isotope:Tc99m Sestamibi IV Isotope: Tc99m Sestamibi IV Isotope dose:12.5 mCi Isotope dose:35.6 mCi Date:11/18/2016 07:21 Date:11/18/2016 09:04 Technique: SPECT Technique: Gated Supine SPECT Supine Scan Time:30 minutes post injection Scan Time:45-60 minutes post injection Medical History Admission Data Admission date: 11/18/2016 Admission Time: 07:01 Hospital Status: Outpatient. Signatures dtt: Isael Stacy (cardio) dtd: 11/18/16 0830 Physician Self Edit
== END | disposition disaster alternative care site (69) ==
LOC: GRAD 07:00
DX: I25.10 Atherosclerotic heart disease of native coronary artery without angina pectoris (principal); E11.9 Type 2 diabetes mellitus without complications; Z98.61 Coronary angioplasty status
CPT/HCPCS: A9500

== ENCOUNTER 2016-12-12 08:29 | Observation (INO) | payer BC ==
[~2016-12-12] VITALS: Ht 157.5 cm; Wt 70.5 kg
--- NOTE | ~2016-12-12 | CATH ---
Cardiac Diagnostic + PCI Report Demographics Patient Name DORIAN Peterson Gender Female Date of 1955 Age 61 year(s) Patient Number [id number] Date of Study 12/12/2016 Visit Number [id number] Room Number G6[address] [place] [id number] Ht 157.48 cm Wt 68.7 kg Referring Lorri Martin MD Primary Physician Physician Performing Tawanna Kirkland MD Secondary Physician Physician Diagnostic Tawanna Kirkland MD Assisting Physician Physician Interventional Tawanna Kirkland MD Physician Success Coach Physician Findings and Conclusions Diagnostic Findings and Conclusion Two vessel CAD. Patent RCA stent. Diagnostic Recommendations PCI LCx. Interventional Findings and Conclusion Successful JOHN PAUL to LCx. 0.014 Prowater. 2.5 x 15 Emerge. 2.5 20 Promus to 26 mm 0% residual. Interventional Recommendations DAPT x 1 year. Routine post angioseal. Procedure Description The patient was brought to the diagnostic cardiac catheterization-EP laboratory in the fasting, non-sedated state. Informed consent was obtained in the written and verbal form after the risks and benefits were explained. The patient had no further questions and agreed to proceed. The planned puncture-incision site(s) were shaved and prepped with ChloraPrep and draped in the usual sterile manner. Conscious sedation, supplemental oxygen, and pain control medications were delivered by a registered nurse under physician guidance. Surface ECG rhythm, blood pressure measurement, and pulse oximetry were monitored throughout the procedure. Arterial access. The access site was infiltrated with lidocaine. The vessel was entered with the Seldinger technique. A sheath was advanced into the vessel and used for catheter placement. Selective left coronary angiography. A catheter was advanced into the left coronary vessel ostium under Fluoroscopic guidance. Contrast was injected by hand. Images were obtained in multiple projections. Selective right coronary angiography. A catheter was advanced into the right coronary vessel ostium under fluoroscopic guidance. Contrast was injected by hand. Images were obtained in multiple projections. Left heart catheterization. A catheter was advanced across the aortic valve to the left ventricle under fluoroscopic guidance. Resting hemodynamics were obtained. Angioplasty and Stent Placement: A guiding catheter was used to intubate the vessel. A 0.14 wire was then used to cross the lesion. A balloon catheter was placed across the lesion and inflated. The balloon catheter was then removed. A Drug Eluting Stent was placed and inflated. Post placement angiograms were performed. Arterial artery hemostasis was achieved. The patient was transferred to a regular nursing floor via cart accompanied by a nurse. The patient left the laboratory in stable condition. Diagnostic Cath Status: Elective Interventional Cath Status: Urgent Procedure Procedure Type Diagnostic procedure:Angiography:, Coronary Angios /[facility] PCI procedure:Drug Eluting Coronary Stent:, OM Indications: Abnormal Stress Test, Angina and Supraventricular Tachycardia. The procedure was explained in detail to the patient. Risks, complications and alternative treatments were reviewed. Written consent was obtained. Medications Reviewed with Patient prior to Procedure. Angiographic Findings Dominance: Right Cardiac Arteries and Lesion Findings LMCA: Normal (0% Stenosis).Medium. LAD: Single stenosis.Medium. Diag 1 medium, ok. Lesion on Dist LAD: Proximal subsection.40% stenosis . LCx: Single stenosis.Normal, large. OM 1 medium. Lesion on 1st Ob Elaine: Proximal subsection.85% stenosis 20 mm length reduced to 0%. Pre procedure ZAID III flow was noted. Post Procedure ZAID III flow was present. The guidewire cross was successful.The lesion was diagnosed as a low risk lesion.Culprit lesion. Devices used - [place] Wire .014 x 180. Number of passes: 1. - Emerge Balloon 2.5 x 15. 1 inflation(s) to a max pressure of: 6 caden. - Promus Premier 2.5 x 20 Stent. 2 inflation(s) to a max pressure of: 11 caden. RCA: Normal (0% Stenosis).Large. PL small, ok. PDA small, ok.There is a previous stent on Mid RCA Mid subsection showing wide patency. Coronary Tree Procedure Data Procedure Date Date: 12/12/2016Start: 12:00 PMEnd: 12:48 PM Entry Locations - Retrograde Percutaneous access was performed through the Right Femoral artery (Primary location). A 6 Fr sheath was inserted. Hemostasis was successfully obtained using Angio-Seal STS PLUS ([place]). Closure Comments: Deployed by Jose Valdivia. Procedure Medications Order and Administration + + + + + !Time !Medication !Dosage !Route ! + + + + + !12/12/2016 11:51 !Zofran !4 mg !I.V. ! !AM ! ! ! ! + + + + + !12/12/2016 12:00 !Versed !1 mg !I.V. ! !PM ! ! ! ! + + + + + 12/12/2016 12:01 !Fentanyl !25 mcg !I.V. ! !PM ! ! ! ! + + + + + !12/12/2016 12:15 !Angiomax (Bivalirudin) !52.5 mg !I.V. bolus ! !PM !(ACC_5) ! ! ! + + + + + !12/12/2016 12:16 !Angiomax (Bivalirudin) !1.75 mg/kg/hr!I.V. bolus ! !PM !(ACC_5) ! ! ! + + + + + 12/12/2016 12:17 !Nipride !50 mcg !I.C. ! !PM ! ! ! ! + + + + + 12/12/2016 12:19 !Oxygen !2 l/min !NC ! !PM ! ! ! ! + + + + 12/12/2016 12:25 !Nipride !55 mcg !I.C. ! !PM ! ! ! ! + + + + 12/12/2016 12:26 !Plavix (ACC_8) !300 mg !P.O. ! !PM ! ! ! ! + + + + + Devices Used - A6 Fr. BS JL 4 Diag. Catheterwas used for:Left coronary angiography. - A6 Fr. BS JR 4 Diag. Catheterwas used for:Right coronary angiography. - A6 Fr. BS Angled Pigtail Diag. Catheterwas used for:Left ventriculography. - A6 Fr. XB 3.5 Guide Catheterwas used for:Circumflex Intervention. Contrast Material - Isovue [id number] ml Fluoroscopy Time: Diagnostic: 8:00 minutes. Total: 8:00 minutes. Fluoroscopy Dose: Diagnostic: 972 mGy. Total: 972 mGy. Estimated Blood Loss: 5 ml. Medical History Performed Procedures and Imaging Results - Stress testing with SPECT MPIwas performed on 11/18/2016. Results were: Positive. Allergies - No known allergies. Risk Factors The patient risk factors include:prior PCI on 09/28/2016;treated hypertension, family history of premature CAD and orally-treated diabetes mellitus. Admission Data Admission Date: 12/12/2016 Admission Time: 08:29 AM Admit Source: Other Insurance Payors: Private health insurance. Admission Medications + +------+------+ + + + + !Medication !Dosage!Times !Last !Last !Administered !Comments ! ! ! !Per !Delivery !Delivery ! ! ! ! ! !Day !Date !Time ! ! ! + +------+------+ + + + + !Aspirin ! ! ! ! ! ! ! !(any) ! ! ! ! ! ! ! + +------+------+ + + + + !Statin (any)! ! ! ! ! ! ! + +------+------+ + + + + !Beta Rafy! ! ! ! ! ! ! !(any) ! ! ! ! ! ! ! + +------+------+ + + + + !Clopidogrel ! ! ! ! ! ! ! + +------+------+ + + + + !PRINCESS ! ! ! ! ! ! ! !Inhibitor ! ! ! ! ! ! ! !(any) ! ! ! ! ! ! ! + +------+------+ + + + + Clinical Evaluation Leading to Procedure - The patient's CAD presentation was assessed as: Unstable angina. - The patient's anginal syndrome during the past two weeks was assessed as: Class III according to the [place] Cardiovascular Society Classification System (CCS). Anti-anginal medications were prescribed during the past two weeks. The medication is: Beta Blockers. - The patient has been in a state of heart failure within the past two weeks. - The patient's heart failure status was assessed as NYHA Class I. Hemodynamics Condition: Rest O2 Consumption: Estimated: 147.36Heart Rate: 49 bpm Pressures (mmHg) +-----+ + !Site !Pressure ! +-----+ + !AO !159/109 (114) ! +-----+ + !AO !140/65 (94) ! +-----+ + !LV !142/8 ,16 ! +-----+ + !LV !135/8 ,11 ! +-----+ + !AO !136/62 (92) ! +-----+ + !LV !139/6 ,15 ! +-----+ + Valve Gradients and Areas + +---------+---------+---------+ +---------+ + !Valve !Peak !Mean !Area !Index !Flow !Source ! + +---------+---------+---------+ +---------+ + !Aortic !1 !0 ! ! ! ! ! + +---------+---------+---------+ +---------+ + !Aortic !1 !0 ! ! ! ! ! + +---------+---------+---------+ +---------+ + Shunts Oxygen Values O2 Capacity 172.72 O2 Consumption 147.36 Signatures dtt: Isael Stacy (cardio) dtd: 12/12/16 [facility] Physician Self Edit
[~2016-12-12 08:29] MED LIST changes: -GLUCOSAMINE/CHO1 CAP PO
--- NOTE | 2016-12-12 17:05 | NUR ---
Significant events: Pt A/Ox3. VSS. No complaints of pain. Off bedrest at 1545 with no complications. R) groin CDI, no drainage or hematoma noted. IV saline locked. To go home tomorrow.
--- NOTE | 2016-12-13 00:11 | NUR ---
Significant Event: Alert and oriented X3. VSS. Right groin cath site soft, non tender, and C/D/I. CSM WNL. Tylenol at 1930 for c/o back stiffness. Patient resting comfortably since. Up to Bathroom SBA. Report given to Liz Palumbo RN at 2300. Follow up: Continue to monitor. Plan home tomorrow.
[2016-12-13 03:25] LABS: BASOPHIL # 0.1 K/uL (0.0-0.2); BASOPHIL % 1.2 %; EOSINOPHIL # 0.2 K/uL (0.0-0.5); EOSINOPHIL % 4.3 %; HEMATOCRIT 36.9 % (33.0-46.0); HEMOGLOBIN 12.4 g/dL (10.0-15.0); LYMPHOCYTE # 0.9 K/uL (0.8-4.0); LYMPHOCYTE % 17.9 %; MCHC 33.6 gm/dL (32.0-36.5); MCV 95.1 fl (83.0-98.0); MONOCYTE # 0.6 K/uL (0.0-1.0); NEUTROPHIL # (ANC) 3.3 K/uL (1.8-7.8); NEUTROPHIL % 65.6 %; NRBC % 0 /100WBC (0-0.00); RBC 3.88 M/uL (3.50-5.50); RDW-CV 13.7 % (11.9-14.6); WBC 5.1 K/uL (4.0-11.0)
[2016-12-13 03:26] LABS: PLATELET COUNT 164 K/uL (150-450)
[2016-12-13 03:48] LABS: ALBUMIN 3.2 gm/dL (3.5-5.0); ALK PHOS 85 IU/L (33-138); ALT 78 IU/L (12-78); ANION GAP 8.5 (10.0-19.0); AST 43 IU/L (10-40); BLOOD UREA NITROGEN 15 mg/dL (6-24); CALCIUM 7.9 mg/dL (8.5-10.5); CHLORIDE 113 mMol/L (96-110); CO2 28 mMol/L (22-32); CREATININE 0.6 mg/dL (0.5-1.1); POTASSIUM 4.5 mMol/L (3.7-5.1); SODIUM 145 mMol/L (135-145); TOTAL PROTEIN 6.4 g/dL (6.0-8.4)
[2016-12-13 03:50] LABS: TOTAL BILIRUBIN 0.3 mg/dL (0.0-1.5)
--- NOTE | 2016-12-13 05:35 | NUR ---
Significant Event:A/Ox3. VSS on RA. Up ad renny in room. R)groin C/D/I with no hematoma or drainage. No c/o of pain. Follow up:Home today.
[2016-12-13] MEDS ORDERED: GLUCOSAMINE/CHO1 CAP PO (10:28)
== END 2016-12-13 11:00 | disposition disaster alternative care site (69) ==
LOC: GPCU 08:29 → GCAT 08:29 → GPOC 09:00 → GPCU 14:17 → GCAT 14:18 → GPCU 14:18 → GCAT 12-13 11:00 → GPCU 12-13 11:00
PROVIDERS: ADMIT Internal Medicine Interventional Cardiology
DX: I25.110 Atherosclerotic heart disease of native coronary artery with unstable angina pectoris (principal); I25.5 Ischemic cardiomyopathy; E78.5 Hyperlipidemia, unspecified; E66.3 Overweight; Z68.29 Body mass index [BMI] 29.0-29.9, adult; E11.9 Type 2 diabetes mellitus without complications; Z79.82 Long term (current) use of aspirin; Z79.899 Other long term (current) drug therapy; Z85.3 Personal history of malignant neoplasm of breast; Z98.890 Other specified postprocedural states; Z79.01 Long term (current) use of anticoagulants
CPT/HCPCS: C1725; C1760; C1769; C1874; C1887; C9600; G0378; J0583; J1644; J2001; J2250; J2405; J3010; J7030; J7060